=== PATIENT | female | born 1955 | race Caucasian/White ===

== ENCOUNTER → 2017-01-09 | Outpatient (CLI) | payer BC ==
[~2017-01-09] MED LIST: CHOL100010 PO; OMEP40CA36 PO
--- NOTE | 2017-01-12 13:48 | MAMMOGRAPHY REPORT ---
BILATERAL DIGITAL SCREENING MAMMOGRAM TOMOSYNTHESIS WITH CAD: 01/09/2017 TECHNIQUE: Breast tomosynthesis in addition to standard 2D mammography was performed. Current study was also evaluated with a Computer Aided Detection (CAD) system. COMPARISON: Comparison is made to exams dated: 01/07/2016 mammogram, 01/05/2015 mammogram, 12/29/2012 mammogram, and 12/23/2011 mammogram - [facility]. BREAST COMPOSITION: There are scattered areas of fibroglandular density in both breasts. FINDINGS: No suspicious masses, calcifications, or areas of architectural distortion are noted in e ither breast. There has been no significant interval change compared to prior exams. IMPRESSION: ACR BI-RADS CATEGORY 1: NEGATIVE There is no mammographic evidence of malignancy. A 1 year screening mammogram is recommended. The p atient will receive written notification of the results. Approximately 10% of breast cancers are not detected with mammography. A negative mammographic repor t should not delay biopsy if a clinically suggestive mass is present. Kristie Howell M.D. ah/:01/09/2017 12:38:00 Can Dragger: Matilde KOHLI(Gino)(Kim), [facility] letter sent: Normal 1/2 BI-RADS Code: ACR BI-RADS Category 1: Negative
== END | disposition home or self-care (01) ==
LOC: C.MAMM 08:48
PROVIDERS: ATTEND Obstetrics & Gynecology
DX: Z12.31 Encounter for screening mammogram for malignant neoplasm of breast (principal)

== ENCOUNTER → 2017-02-28 | Outpatient (CLI) | payer BC ==
--- NOTE | 2017-02-28 11:33 | DIAGNOSTIC IMAGING REPORT ---
L-SPINE MIN 4 VIEWS ROUTINE CLINICAL HISTORY: Low back pain status post trauma COMPARISON STUDY: 04/08/2011 FINDINGS: There are surgical clips within the right upper quadrant consistent with a prior cholecystectomy. There is a mild spinal curvature convex to the left. There are no acute fractures. There are progressive degenerative changes at the L1-2 and L2-3 levels with mild endplate erosive change. IMPRESSION: 1. Progressive mild degenerative change 2. No acute fractures or subluxations identified Electronically signed by: Shahzad Baugh M.D. 02/28/2017 11:31 AM Dictated Date/Time: 02/28/2017 11:29 AM
== END | disposition home or self-care (01) ==
LOC: C.RAD 10:39
PROVIDERS: ATTEND Family Medicine Adolescent Medicine
DX: M54.9 Dorsalgia, unspecified (principal)

== ENCOUNTER → 2018-01-13 | Outpatient (CLI) | payer OTHER ==
--- NOTE | 2018-01-14 08:02 | MAMMOGRAPHY REPORT ---
BILATERAL DIGITAL SCREENING MAMMOGRAM TOMOSYNTHESIS WITH CAD: 01/13/2018 CLINICAL HISTORY: Routine screening. Patient has no complaints. TECHNIQUE: Breast tomosynthesis in addition to standard 2D mammography was performed. Current study was also evaluated with a Computer Aided Detection (CAD) system. COMPARISON: Comparison is made to exams dated: 01/09/2017 mammogram, 01/07/2016 mammogram, 01/05/2015 ma mmogram, 01/04/2014 mammogram, 12/29/2012 mammogram, and 12/23/2011 mammogram - [facility]. BREAST COMPOSITION: There are scattered areas of fibroglandular density in both breasts. FINDINGS: No suspicious masses, calcifications, or areas of architectural distortion are noted in ei ther breast. There has been no significant interval change compared to prior exams. IMPRESSION: ACR BI-RADS CATEGORY 1: NEGATIVE There is no mammographic evidence of malignancy. A 1 year screening mammogram is recommended. The pa tient will receive written notification of the results. Approximately 10% of breast cancers are not detected with mammography. A negative mammographic report should not delay biopsy if a clinically suggestive mass is present. Kristie Howell M.D. /:01/13/2018 09:08:41 Scrap Carrier: Angelika Nicholson, [facility] letter sent: Normal 1/2 BI-RADS Code: ACR BI-RADS Category 1: Negative
== END | disposition home or self-care (01) ==
LOC: C.MAMM 08:42
PROVIDERS: ATTEND Obstetrics & Gynecology
DX: Z12.31 Encounter for screening mammogram for malignant neoplasm of breast (principal)

== ENCOUNTER 2021-03-12 07:07 | Observation (INO) ==
--- NOTE | 2021-03-05 11:08 | Anesthesiology Consultation ---
Date of Service March 05, 2021 Assessment & Plan (1) Encounter for pre-operative examination: COVID screening: Per assessment on 03/05: Travel screen- traveled to [place], [place] to help pack Mother in law's house to move (drove with spouse and stayed at Mother in law's house). Uses PPE/social distancing and follows COVID precaution guidelines. No known COVID-19 positive contacts or current COVID-19 related symptoms. Surgeon arranged preop COVID testing (scheduled 03/07; [facility] which will be 8 days after return from travel). Awaiting results. Chart Review Chart Review: Acceptable Risk for Surgery and Patient NOT seen in Pre Admission Testing History Surgery Operation Date: 03/12/21 08:50 Proposed Procedures p Right Unicompartmental Knee Arthroplasty versus - Oj Shirley MD s Right Total Knee Arthroplasty - Oj Shirley MD Height/Weight Height: 5 ft 2 in Weight: 81.647 kg Allergies Allergy/AdvReac Type Severity Reaction Status Date / Time sulfamethoxazole Allergy Intermediate Sores Verified 03/05/21 11:17 trimethoprim Allergy Intermediate Sores Verified 03/05/21 11:17 Bactrim Allergy Unknown "SORES" Verified 12/24/11 18:53 Sulfa (Sulfonamide Allergy Unknown Sores Verified 03/05/21 11:17 Antibiotics) meperidine AdvReac Severe Seizure-like Verified 03/05/21 11:06 activity, confusion metoclopramide AdvReac Severe Seizure-like Verified 03/05/21 11:06 activity, mouth/arm movement Medications Home Medications Medication Instructions Recorded Confirmed Last Taken cholecalciferol (vitamin D3) 50 1 unit PO QAM cap 06/21/19 03/05/21 Unknown mcg (2,000 unit) capsule omeprazole 20 mg capsule,delayed 20 mg PO BID cap 06/21/19 03/05/21 Unknown release Wheeled Walker #1 ea 08/17/20 12/11/20 Unknown ascorbic acid-vitamin E-biotin 2 tab PO QAM 10/01/20 03/05/21 Unknown [Hair, Skin, Nails with Biotin] atorvastatin 20 mg PO PM 10/01/20 03/05/21 Unknown elrnbbsqpaid-nocw-gtqca acid 1 tab PO QAM 10/01/20 03/05/21 Unknown [Centrum] estradiol 10 mcg vaginal tablet 10 mcg PV 2XWK #24 tab 12/11/20 03/05/21 Unknown diclofenac sodium 75 mg 75 mg PO BID #60 tab 02/07/21 03/05/21 Unknown tablet,delayed release acetaminophen [Tylenol Extra 1,000 mg PO Q6H PRN 03/05/21 03/05/21 Unknown Strength] amino acids [Amino Acid] 4 cap PO QAM 03/05/21 03/05/21 Unknown Past Medical History Medical History (Updated 03/05/21 @ 11:19 by Nicolasa Jang) Anemia hgb's 11 range per chart review GERD (gastroesophageal reflux disease) High cholesterol Osteoarthritis Past Family History Family History Father Dyslipidemia Colorectal cancer Hypertension Diabetes Mother Cardiac disorder Brother Non Hodgkin's lymphoma Coronary heart disease Grandmother (Maternal) Colorectal cancer Aunt Colorectal cancer Uncle Colorectal cancer Past Surgical History Surgical History (Updated 03/05/21 @ 11:19 by Nicolasa Jang) H/O section x2 H/O dilation and curettage H/O oral surgery Teeth extractions History of cholecystectomy History of colonoscopy Multiple (with polypectomy) History of esophagogastroduodenoscopy (EGD) History of tonsillectomy Hx of LASIK Social History Smoking Status: Never smoker Do You Dip or Chew Tobacco: No Hx Alcohol Use: Yes Alcohol type: wine alcohol intake frequency: a few times a week Hx Substance Use: Yes substance use type: prescription drug Lab Results Anesthesia Preop Results Results Anesthesia Widget: WBC 4.90 K/uL (4.8-10.8) 02/19/21 Hgb 10.8 g/dL (12.0-16.0) L 02/19/21 Hct 33.4 % (37-47) L 02/19/21 Plt 362 K/uL (130-400) 02/19/21 Na 140 mmol/L (136-145) 02/19/21 K 4.1 mmol/L (3.5-5.1) 02/19/21 Cl 109 mmol/L (98-107) H 02/19/21 CO2 26 mmol/L (21-32) 02/19/21 BUN 17 mg/dl (7-18) 02/19/21 Creat 0.98 mg/dl (0.6-1.2) 02/19/21 Glucose Level 75 mg/dl (70-99) 02/19/21 PT 10.2 Seconds (9.0-12.0) 02/19/21 INR 1.0 (0.9-1.1) 02/19/21 Blood Type AB Positive 02/19/21 Antibody Screen NEGATIVE 02/19/21 Lab Comments: Stable, chronic anemia. Preop labs forwarded to PCP for continuity of care* Testing Laboratory Results Blood Type AB Positive 02/19/21 11:15 Antibody Screen NEGATIVE 02/19/21 11:15 Electrocardiogram Date: 10/12/20 Findings: + NSR @ (72) Chest X-Ray Date: 10/12/20 FINDINGS: Cardiomediastinal and hilar silhouettes are within normal limits. No pneumothorax, pleural effusion, airspace consolidation or overt pulmonary edema. Degenerative changes of the shoulders and spine. Surgical clips project over the upper abdomen. IMPRESSION: No acute process. Stress Test Date: 12/18/15 Resting EF: 65% Negative exercise EKG and echocardiogram for ischemia at 88% MPHR. Well above average exercise tolerance for age and gender, 146% of predicted, achieving 10.5 METS.
--- NOTE | 2021-03-05 23:12 | History and Physical Report ---
DATE OF ADMISSION: 03/12/2021 CHIEF COMPLAINT: Persistent right knee pain. HISTORY OF PRESENT ILLNESS: The patient is a 66-year-old female who presents for surgical treatment of her right knee. 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 She has had a long history of knee problems. She was scheduled for right knee replacement in the past, but canceled due to COVID epidemic. She now presents for surgery again. She has a several-year history of increasing pain. She has been followed by my partner, Dr. Penn, with conservative care, which has become less successful over time. Symptoms wax and wane. She is frustrated by this and would like to have her right knee fixed. It is limiting her activities. PAST MEDICAL HISTORY: 1. Elevated cholesterol. 2. Mild obesity with a BMI of 33. 3. Gastroesophageal reflux disease. PAST SURGICAL HISTORY: Previous surgeries include, 1. x2. 2. Cholecystectomy. ALLERGIES: REGLAN, DEMEROL, BACTRIM. CURRENT MEDICINES: Include, 1. Atorvastatin 20 mg a day. 2. Omeprazole twice daily. 3. Diclofenac twice a day. 4. Vitamin D. 5. Multivitamin. SOCIAL HISTORY: A 65-year-old female. 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 Does not smoke. Rare alcohol intake. FAMILY HISTORY: Noncontributory. REVIEW OF SYSTEMS: Negative for diabetes, neurologic problems, vascular problems or bleeding disorders. No chest pain or shortness of breath. No history of DVT or PE. No known bleeding problems. PHYSICAL EXAMINATION: GENERAL: Reveals a healthy, pleasant, middle-aged female. Looks to be in excellent health. HEENT: Benign. NECK: Supple, no lymphadenopathy. LUNGS: Clear to auscultation. HEART: Has a regular rate and rhythm. ABDOMEN: Soft, nontender, nondistended. EXTREMITIES: Grossly neurovascularly intact except as follows: Examination of the right knee reveals the patient ambulates independently. She just has a slight bit of a limp on the right side. She has got varus alignment to her knee and she is tender over the medial joint line. Small to moderate size knee effusion. Range of motion is a couple of degrees short of full extension to 125 degrees of flexion. There is no instability. No pain with hip motion. IMAGING DATA: X-rays of the right knee from previously reviewed, shows moderately advanced medial compartment DJD. She has got 50% loss of her joint space. She has got osteophytes medially. She does have some lateral osteophytes as well. She has got some moderate patellofemoral disease as well. MRI was reviewed. It shows significant degenerative changes in the medial side of the knee with bone marrow changes of the medial femoral condyle and medial tibial plateau. She has extrusion of the medial meniscus. She has got pretty significant patellofemoral bone marrow change as well. ASSESSMENT: A 66-year-old female with right knee pain and progressive knee arthritis, unresponsive to conservative treatment. She was scheduled for knee replacement in the past, but canceled due to COVID and she would like to proceed along this course now. PLAN: We will proceed with right knee replacement. The risks and benefits were clearly explained to the patient including, but not limited to, DVT, PE, , infection, neurological injury, vascular injury, bleeding problem, pain, limited range of motion, stiffness, failure to relieve symptoms, incomplete relief of symptoms, need for further surgery in the future, fracture, leg length inequality, nerve palsy, etc. The patient understands and desires to proceed. Informed consent was obtained. She does know to stop the diclofenac 10 days preop. She is planning to be discharged to home and do outpatient therapy.
[~2021-03-12 07:07] MED LIST changes: +ACETAMINOPHEN 500 MG TAB PO SCH; +BUPIVACAINE 0.25% 30 ML VIAL ONE; +BUPIVACAINE 0.5 % 5 MG/1 ML PF 10ML VIAL ONE; +BUPIVACAINE LIPOSOME/PF 266 MG, BUPIVACAINE/EPINEPHRINE 50 ML, SODIUM CHLORIDE 0.9% 30 ... INFIL SCH; -CHOL100010 PO; +GABAPENTIN 600 MG DOSE PO SCH; +LR 500ML BOLUS, THEN 15ML/HR IV SCH; +LR 60ML/HR IV SCH; -OMEP40CA36 PO; +Scopolamine 1 MG TDSY TD SCH; +TRANEXAMIC ACID 1,000 MG **IV Intra-op IV SCH; +ceFAZolin 2000MG 2,000 MG/15 ML SYR IV SCH
[2021-03-12] MEDS ORDERED: MIDAZOLAM HCL 1 MG/ML 2ML VIAL ONE (07:45)
[2021-03-12] MEDS ORDERED: fentaNYL citrate 100 MCG/2 ML VIAL ONE (07:46)
[2021-03-12] MEDS ORDERED: BUPIVACAINE LIPOSOME 1.3% 266 MG/20 ML VIAL ONE (08:53)
[2021-03-12] MEDS ORDERED: SODIUM CHLORIDE 0.9% PF 50 ML VIAL ONE (08:53)
--- NOTE | 2021-03-12 08:53 | History & Physical Bridge Note ---
Date of Service March 12, 2021 History & Physical Bridge Note I have examined the patient, reviewed the History & Physical and in the interval since the performance of the History & Physical I have noted the following changes of clinical significance: no changes noted
[2021-03-12] MEDS ORDERED: BUPIVACAINE 0.25% 30 ML VIAL ONE (08:54)
[2021-03-12] MEDS ORDERED: EPINEPHrine INJ 1 MG/ML AMP ONE (08:54)
[2021-03-12] MEDS ORDERED: LIDOCAINE HCL 2% 2 ML VIAL/AMP(20MG/ML) INFIL ONE (09:28)
[2021-03-12] MEDS ORDERED: ONDANSETRON INJ 2 MG/ML 2 ML VIAL ONE (09:28)
[2021-03-12] MEDS ORDERED: PROPOFOL IV EMULSION 10 MG/ML 20 ML VIAL IV ONE (09:28)
[2021-03-12] MEDS ORDERED: ATROPINE SULFATE 0.1 MG/ML 10ML SYR IV PRN (09:41)
[2021-03-12] MEDS ORDERED: ePHEDrine sulfate 50 MG/ML AMP IV PRN (09:41)
[2021-03-12] MEDS ORDERED: ONDANSETRON INJ 2 MG/ML 2 ML VIAL IV PRN ×2 (09:41→12:04)
--- NOTE | 2021-03-12 11:07 | Operative Report ---
Post Operative Report Pre & Post Diagnosis Operation Date: 03/12/21 08:50 Pre-Op Diagnosis: Right Knee Degenerative Joint Disease Post-Op Diagnosis: Right Knee Degenerative Joint Disease I identified the patient and participated in the time-out.: Yes Procedure Operation Date: 03/12/21 08:50 Actual Procedures p Right Total Knee Arthroplasty, Cemented(Right) - Oj Shirley MD Surgeon Oj Shirley MD Machine Operator Helper WALI Gonzales Estimated Blood Loss 50 Findings Consistent with Post-Op Diagnosis Operative findings were advanced right knee DJD. She had pretty extensive and diffuse grade 4 changes medial femoral condyle and less severe of the medial tibial plateau. She had grade 4 but [id number] disease of the patellofemoral joint as well most severe the patella itself. The lateral compartments pretty well-preserved. She had a moderate-sized joint effusion. Slight varus deformity to her knee. Fluids 1100 cc Specimens Right knee sent for pathology. 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 She been treated by my partner for several years. This became less successful over time. X-ray showed a moderate DJD. She had an MRI which showed more extensive disease with bone marrow changes. Patient is indicated for total knee arthroplasty. She also has significant patellofemoral disease. Description of Procedure Operative implants consisted of: 1. Biomet Vanguard size 62.5 right posterior stabilized femoral component. 2. Biomet size 67 tibial tray. 3. 10 mm posterior stabilized polyethylene insert. 4. 28 x 8 all polypatella. The patient was taken to the operating, identified, and placed on the operating table supine position but all contractors were properly padded. IV antibiotics tried by anesthesia team. A spinal anesthetic and abductor canal block had been applied in the holding area. Acosta catheter was placed in sterile fashion a right thigh turn was then placed in the right lower extremities and prepped draped in usual sterile fashion. The right leg was elevated and exsanguinated with use of an Esmarch and tourniquet placed at 300 mmHg. An anterior approach to the right knee was then performed to longitudinal incision centered over the patella. Sharp dissection was carried through subcutaneous this down the extensor mechanism. Medial parapatellar arthrotomy incision was made. Some subperiosteal dissection was carried out medially. The fat pad was resected from each patella tendon. The lateral patellofemoral ligament was released. Patella was subluxated laterally and the knee was flexed. The osteophytes were taken off distal femur. The ACL and PCL were released from the distal femur the tibia subluxated anteriorly. The external tibial alignment jig was then placed in the interface the tibia and adjusted 14 mm medially. Proximal tibial cut was made remove about 2 mm of bone from the medial side. The tibia was then sized to a size 67. We did have the downsized this slightly to get proper rotation. Some osteophytes taken off medial and posterior medially. Attention then drawn the femur. The distal femur stem with a sharp drop with intramedullary canal was suction. A right 5 degree valgus cutting guide was placed. Distal femoral cutting block was pinned in place. Distal femoral cut was made to take an additional 3 mm bone off distal femur. The femur was then sized to a size 62.5. We downsized this just slightly. The AP cutting block was pinned parallel to the epicondylar axis which was 3 degrees of external rotation. The anterior cut, anterior chamfer, posterior cut, posterior chamfer cuts were made. The box cutting guide was placed in a just slight lateral box cut was made. The knee was flexed. The remnants of the medial and lateral menisci were excised. The osteophytes were taken off the posterior aspect the femur. A trial femoral component was placed. The tibial tray was pinned in maximum external rotation and the drill and stem punch were used to create defect in proximal to for the tibial tray. Knee was then trialed and the 10 mm insert fit most appropriately. Attention drawn the patella. Nupathe the patella was cleaned of all soft tissue. Patella thickness measured 17 mm and cut down to 12. Sized to a size 28 patella. The lug holes were drilled for the 28 patella. The lateral osteophyte was removed. Patella button was placed. Knee was taken through range of motion patella tracked nicely with no thumbs test. Attention drawn to placing permanent components. Nupathe all trial components were removed. Bone plug was placed in the distal femur limit blood loss put a double batch Palacos G cement was mixed. A Biomet Vanguard size 62.5 right posterior stabilized femoral component, a size 67 tibial tray, 10 mm posterior stabilized polyethylene insert, 28 x 8 all polypatella were then cemented in place. The knee was brought out into full extension total cement hardened. Final cement check was then performed. Pericapsular tissues were injected with total 100 cc of combination of 20 cc of Exparel, 30 cc normal saline, 50 cc of quarter percent Marcaine with epinephrine. Patient did receive 1 g tranexamic acid. The turn was then let down for final tourniquet time of 52 minutes. Hemostasis assured with cautery. Wounds once again irrigated. The extensor mechanism closed with combination 1 PDS suture #1 Vicryl suture in [id number] fashion for the extensor mechanism checked found to be intact with subcutaneous tissue then closed with 2 Dexon suture in a buried interrupted fashion skin was closed skin renee. Leg was then cleaned dried a sterile dressing both Xeroform, 4 x 4's, sterile cast padding, James bandage were applied. Patient then transferred to the recovery room in stable condition. Patient tolerated procedure well and there were no complications. Kyle Gonzales, my physician personal injury legal assistant, was present for the entire procedure. His assistance was essential and required for appropriate patient positioning, prepping and draping, surgical exposure, performing the technical details of the operation, placement the implants, closure of the wound, and placement of the sterile bandage. I attest to the content of the Intraoperative Record and any orders documented therein. Any exceptions are noted below.
--- NOTE | 2021-03-12 11:31 | XRay Report ---
XR knee RT 1 or 2V routine HISTORY: 66 years-old Female Surgical Post Op right knee total joint arthroplasty COMPARISON: Knee radiographs 05/10/2020 TECHNIQUE: 2 views of the right knee FINDINGS: Right knee total joint arthroplasty and patella resurfacing. Anterior midline skin renee. Expected postsurgical soft tissue swelling with deep tissue air. No acute fracture or unexpected opaque foreig n body. IMPRESSION: Right knee total joint arthroplasty with expected postoperative changes. ACT 112: Negative or not required by law. The above report was generated using voice recognition software. It may contain grammatical, syntax o r spelling errors. Electronically signed by: Arash Reynolds M.D. 03/12/2021 11:30 AM
[2021-03-12] MEDS ORDERED: NALOXONE HCL 0.4 MG/1 ML VIAL/CARP IV PRN (12:04)
[2021-03-12] MEDS ORDERED: MAGNESIUM HYDROXIDE SUSP 30 ML UDC PO PRN (12:04)
[2021-03-12] MEDS ORDERED: bisacodyL 10 MG SUPP PR PRN (12:04)
[2021-03-12] MEDS ORDERED: diphenhydrAMINE Capsule 25 MG CAP PO PRN (12:04)
[2021-03-12] MEDS ORDERED: HYDROmorphone INJ 0.5 MG/0.5 ML SYR IV PRN (12:04)
[2021-03-12] MEDS ORDERED: METOCLOPRAMIDE HCL INJ 5 MG/ML 2 ML VIAL IV PRN (12:04)
[2021-03-12] MEDS ORDERED: ALUMINUM/MAGNESIUM SUSP 30 ML UDC PO PRN (12:04)
[2021-03-12] MEDS: SODIUM CHLORIDE 0.9% 1000ML 1,000 ML IV SCH (13:04)
[2021-03-12] MEDS: KETOROLAC 30 MG/ML VIAL IV SCH ×3 (13:26→23:59)
--- NOTE | 2021-03-12 13:31 | Progress Notes ---
DATE: 03/12/2021 SUBJECTIVE: Postop right total knee replacement. HISTORY OF PRESENT ILLNES: A 66-year-old female postop from right knee replacement. She is doing well. Legs are still numb. No real feeling at all. No chest pain or shortness of breath. Not feeling dizzy or lightheaded. OBJECTIVE: VITAL SIGNS: Temperature 36.5. Vital signs stable. GENERAL: Shows a pleasant, middle-aged female. She is sitting up in bed, looks comfortable. LUNGS: Clear to auscultation. HEART: Has a regular rate and rhythm. ABDOMEN: Soft, nontender, nondistended. EXTREMITIES: Grossly neurovascularly intact except as follows: Examination of both legs revealed the legs to be well aligned. She has got pink toes with brisk refill in the right foot. Good distal pulse. No significant sensory or motor function below the knee. X-RAYS: X-rays of the right knee from recovery room are reviewed. It shows a right cemented posterior stabilized total knee arthroplasty. Components looked to be in good position. No signs of problems. ASSESSMENT: A 66-year-old female postoperative from a right knee replacement, doing well. The spinal is still in effect. PLAN: 1. DVT prophylaxis including thigh-high TEDs, SCDs, and aspirin twice a day. 2. PT/OT. Weight bear as tolerated. Right total knee protocol. 3. Pain control, doing well with current pain regimen. Spinal is still in effect. We will have to adjust her medicines as spinal wears off. 4. IV antibiotics x24 hours. 5. Disposition: Plan to discharge to home with some home health once adequately recovered and medically stable.
--- NOTE | 2021-03-12 14:09 | Anesthesiology Progress Note ---
Date of Service March 12, 2021 Anesthesia Post Procedure Vital Signs Vital Signs: Temp Pulse Pulse Pulse Pulse Resp BP 03/12/21 12:50 36.5 C 62 16 03/12/21 12:30 36.9 C 68 15 03/12/21 11:50 36.4 C L 72 16 03/12/21 11:30 36.5 C 73 17 03/12/21 11:20 36.5 C 71 15 03/12/21 11:10 71 15 03/12/21 11:00 70 15 03/12/21 10:54 36.7 C 78 15 03/12/21 07:45 37.3 C 67 20 145/87 H BP Pulse Ox 03/12/21 12:50 121/81 98 03/12/21 12:30 144/85 H 98 03/12/21 11:50 114/77 95 03/12/21 11:30 125/75 100 03/12/21 11:20 112/71 100 03/12/21 11:10 114/72 100 03/12/21 11:00 114/72 100 03/12/21 10:54 110/64 98 03/12/21 07:45 98 Pain Intensity Right Knee: Pain Intensity: 0 Transfer of Care Handoff Completed per policy Notes Mental Status: alert / awake / arousable and participated in evaluation Patient Amnestic to Procedure: Yes Nausea / Vomiting: adequately controlled Pain: adequately controlled Airway Patency, RR, SpO2: stable & adequate BP & HR: stable & adequate Hydration State: stable & adequate Neuraxial Anesthesia: was administered and sensory block is resolving Anesthetic Complications: no major complications apparent and Pt Satisfied with anesthetic care
[2021-03-12] MEDS: PROSOURCE NO CARB 30 ML/PKT PO SCH ×2 (14:43→21:11)
[2021-03-12] MEDS: oxyCODONE HCL IR 5 MG TAB (IMMEDIATE RELEASE) PO PRN ×2 (14:45→21:11)
[2021-03-12] MEDS: ACETAMINOPHEN 500 MG TAB PO SCH (15:34)
[2021-03-12] MEDS: Scopolamine CHECK PATCH PLACEMENT SCH (15:34)
[2021-03-12] MEDS ORDERED: TRANEXAMIC ACID / 0.7% NACL 1,000 MG/100 ML BAG IV SCH (16:57)
[2021-03-12] MEDS: ceFAZolin 2000MG 2,000 MG/15 ML SYR IV SCH (17:15)
[2021-03-12] MEDS: ASCORBIC ACID 500 MG TAB PO SCH (17:24)
[2021-03-12] MEDS: FERROUS GLUCONATE 324 MG TAB PO SCH (17:25)
[2021-03-12] MEDS ORDERED: SENNA 8.6 MG TAB PO SCH (21:00)
[2021-03-12] MEDS ORDERED: ATORVASTATIN 20 MG TAB PO SCH (21:00)
[2021-03-12] MEDS: ASPIRIN 81 MG ECTAB PO SCH (21:08)
[2021-03-12] MEDS: PANTOprazole 40 MG TAB PO SCH (21:09)
[2021-03-12] MEDS: DOCUSATE SODIUM 100 MG CAP PO SCH (21:09)
[2021-03-12] MEDS: TAPENTADOL HCL ER 50 MG TABCR PO SCH (21:54)
[2021-03-13] MEDS: Scopolamine CHECK PATCH PLACEMENT SCH ×3 (00:01→15:53)
[2021-03-13] MEDS: SODIUM CHLORIDE 0.9% 1000ML 1,000 ML IV SCH (00:03)
[2021-03-13] MEDS: ceFAZolin 2000MG 2,000 MG/15 ML SYR IV SCH (02:10)
[2021-03-13] MEDS: KETOROLAC 30 MG/ML VIAL IV SCH ×2 (05:22→11:03)
[2021-03-13 06:30] LABS: Hematocrit (blood only) 28.8 % (37-47); Hemoglobin 9.1 g/dL (12.0-16.0); Mean Corpuscular Hemoglobin 26.2 pg (25-34); Mean Corpuscular Hgb Conc 31.6 g/dL (32-36); Mean Platelet Volume 9.5 fL (7.4-10.4); Platelet Count 269 K/uL (130-400); RDW Coefficient of Variation 14.5 % (11.5-14.5); RDW Standard Deviation 43.8 fL (36.4-46.3); Red Blood Count 3.47 M/uL (4.2-5.4); White Blood Count 5.61 K/uL (4.8-10.8)
[2021-03-13 07:07] LABS: BUN Creatinine Ratio 20.6 (10-20); Calcium 8.1 mg/dl (8.5-10.1); Creatinine Clr Calc Pharmacy 56.2 ml/min; Est GFR (African American) 68.1; Est GFR (Non-African American) 58.8; Potassium 4.1 mmol/L (3.5-5.1)
[2021-03-13] MEDS ORDERED: dexAMETHasone 4 MG TAB PO SCH (08:00)
[2021-03-13] MEDS ORDERED: CEROVITE ADV FORMULA TAB PO SCH (09:00)
[2021-03-13] MEDS ORDERED: CHOLECALCIFEROL 1,000 UNITS 25 MCG TAB PO SCH (09:00)
[2021-03-13] MEDS ORDERED: MULTIVITAMIN TAB PO SCH (09:00)
[2021-03-13] MEDS ORDERED: NON-FORMULARY MEDICATION (Amino Acids [Amino Acid] Capsule) PO SCH (09:00)
[2021-03-13] MEDS ORDERED: NON-FORMULARY MEDICATION (Ascorbic Acid-Vitamin E-Biotin [Hair, Skin, Nails With Biotin] 7 PO SCH (09:00)
[2021-03-13] MEDS: PANTOprazole 40 MG TAB PO SCH (09:07)
[2021-03-13] MEDS: DOCUSATE SODIUM 100 MG CAP PO SCH (09:08)
[2021-03-13] MEDS: ASCORBIC ACID 500 MG TAB PO SCH (09:08)
[2021-03-13] MEDS: FERROUS GLUCONATE 324 MG TAB PO SCH (09:08)
[2021-03-13] MEDS: ASPIRIN 81 MG ECTAB PO SCH (09:08)
[2021-03-13] MEDS: TAPENTADOL HCL ER 50 MG TABCR PO SCH (09:17)
[2021-03-13] MEDS: ACETAMINOPHEN 500 MG TAB PO SCH ×3 (09:18→15:53)
[2021-03-13] MEDS: PROSOURCE NO CARB 30 ML/PKT PO SCH ×2 (09:18→15:52)
[2021-03-13] MEDS: oxyCODONE HCL IR 5 MG TAB (IMMEDIATE RELEASE) PO PRN (11:02)
--- NOTE | 2021-03-13 16:07 | Progress Notes ---
DATE: 03/13/2021 SUBJECTIVE: A 66-year-old female postoperative day 1 from a right knee replacement. She is doing quite well. Therapy went well. Pain is controlled. No chest pain or shortness of breath. Not feeling dizzy or lightheaded. OBJECTIVE: VITAL SIGNS: Temperature is 36.6. Vital signs stable. GENERAL: Shows a pleasant, middle-aged female. She is sitting up in bed, looks comfortable. EXTREMITIES: Examination of the right leg reveals the dressing to be clean, dry and intact. She can dorsiflex and plantarflex her foot appropriately. She can do a straight leg raise with some effort. She is neurologically intact. Brisk refill. LABORATORY DATA: Hemoglobin is 9.1. Hematocrit 28.8. Electrolytes are stable. ASSESSMENT: A 66-year-old white female postop day 1 from a right knee replacement, doing well. Pain is controlled. She is neurologically intact. She is anemic, but without symptoms. PLAN: 1. DVT prophylaxis including thigh-high TEDs, SCDs, and aspirin twice a day. 2. PT/OT. Weight bear as tolerated. Right total knee protocol. 3. Pain control, doing well with current pain regimen. 4. Anemia. We will continue iron supplementation. 5. Disposition: Plan to discharge to home. She is going to do outpatient therapy.
== END 2021-03-13 16:37 | disposition home or self-care (01) ==
LOC: 3E 07:07 → ASU 07:07